=== PATIENT | female | born 1995 ===

== ENCOUNTER 2021-07-05 05:30 | Inpatient (IN) | payer BC ==
[2021-07-05] MEDS: Lactated Ringer's 1,000 ML IV SCH ×3 (07:00→19:09)
[2021-07-05] MEDS ORDERED: Lidocaine 1% (PF) 30 ML VIAL SC PRN (07:02)
[2021-07-05] MEDS ORDERED: Carboprost 250 MCG/ML AMP IM PRN (07:02)
[2021-07-05] MEDS ORDERED: Promethazine HCl 25 MG/ML VIAL IM PRN ×2 (07:02→19:02)
[2021-07-05] MEDS ORDERED: hydrALAZINE 20 MG/ML VIAL SLOW IVP PRN (07:02)
[2021-07-05] MEDS ORDERED: Fentanyl 100 MCG/2 ML VIAL SLOW IVP PRN (07:02)
[2021-07-05] MEDS ORDERED: Ibuprofen 800 MG TAB PO PRN (07:02)
[2021-07-05] MEDS ORDERED: Methylergonovine 0.2 MG/ML VIAL IM PRN (07:02)
[2021-07-05] MEDS ORDERED: Acetaminophen 500 MG TAB PO PRN (07:02)
[2021-07-05] MEDS ORDERED: Ondansetron PF 4 MG/2 ML Vial IVP PRN ×2 (07:02→19:02)
[2021-07-05] MEDS ORDERED: Misoprostol 200 MCG TAB PR PRN (07:02)
[2021-07-05 07:07] VITALS: BMI 35.2
[2021-07-05] MEDS ORDERED: NS w/ Oxytocin 30 units 500 ML IV SCH ×2 (07:15)
[2021-07-05 07:22] LABS: Hemoglobin 10.5 g/dL (12.0-15.5); Mean Corpuscular HGB CONC 32.7 g/dL (32.0-36.0); Mean Corpuscular Hemoglobin 26.4 pg (27.0-33.0); Mean Corpuscular Volume 80.9 fl (81.6-98.3); Mean Platelet Volume 10.2 fl (7.4-10.4); Platelet Count 210 10x3/uL (150-450); RBC Distribution Width 13.9 % (11.5-14.5); Red Blood Cell (RBC) Count 3.97 10x6/uL (3.90-5.03); White Blood Cell (WBC) Count 7.2 10x3/uL (3.5-10.5)
[2021-07-05] MEDS: Misoprostol 100 MCG TAB VAG SCH ×2 (07:49→10:44)
[2021-07-05] MEDS ORDERED: Lidocaine 2% PF 5 ML VIAL ONE (08:00)
[2021-07-05] MEDS ORDERED: Bupivacaine 0.25% HCL 30 ML VIAL ONE (08:00)
[2021-07-05] MEDS ORDERED: Naloxone HCl 0.4 mg/ml Vial IVP PRN ×2 (19:02)
[2021-07-05] MEDS ORDERED: Acetaminophen 325 MG TAB PO PRN (19:02)
[2021-07-05] MEDS ORDERED: ePHEDrine Sulfate 50 MG/10 ML VIAL SLOW IVP PRN (19:02)
[2021-07-05] MEDS ORDERED: diphenhydrAMINE 50 MG/ML VIAL IVP PRN (19:02)
[2021-07-05] MEDS ORDERED: Hydrocerin (Eucerin) Cream 120 gm Jar TOP PRN (19:02)
[2021-07-05] MEDS ORDERED: Lactated Ringer's 500 ML IV PRN (19:02)
[2021-07-05] MEDS ORDERED: Fentanyl 2 mcg/Bup 0.1% Cadd 100 ML ONE (19:07)
[2021-07-05] MEDS ORDERED: Communication Order-Pharmacy FS SCH (19:15)
[2021-07-05] MEDS ORDERED: Fentanyl 2 mcg/Bupivacaine 0.1% Cassette 100 ML EPIDURAL SCH (19:15)
[2021-07-06] MEDS ORDERED: hydrALAZINE 20 MG/ML VIAL SLOW IVP PRN (02:41)
[2021-07-06] MEDS ORDERED: Preparation H Ointment 28 GM TUBE PR PRN (02:41)
[2021-07-06] MEDS ORDERED: Misoprostol 200 MCG TAB VAG PRN (02:41)
[2021-07-06] MEDS ORDERED: Methylergonovine 0.2 MG/ML VIAL IM PRN (02:41)
[2021-07-06] MEDS ORDERED: Milk Of Magnesia 30 ML UDCUP PO PRN (02:41)
[2021-07-06] MEDS ORDERED: Lanolin Ointment 7 GM TUBE TOP PRN (02:41)
[2021-07-06] MEDS ORDERED: Promethazine HCl 25 MG/ML VIAL IM PRN (02:41)
[2021-07-06] MEDS ORDERED: Benzocaine-Menthol 82.5 ML CAN TOP PRN (02:41)
[2021-07-06] MEDS ORDERED: Bisacodyl 10 MG SUPP PR PRN (02:41)
[2021-07-06] MEDS ORDERED: Boostrix 0.5 ML (Tdap) VIAL IM ONE (02:41)
[2021-07-06] MEDS ORDERED: Ondansetron PF 4 MG/2 ML Vial IVP PRN (02:41)
[2021-07-06] MEDS ORDERED: NS w/ Oxytocin 30 units 500 ML IV SCH (03:00)
[2021-07-06] MEDS: Misoprostol 100 MCG TAB VAG SCH (03:07)
[2021-07-06] MEDS ORDERED: Ibuprofen 800 MG TAB PO SCH (06:00)
[2021-07-06] MEDS: Ferrous Sulfate 325 MG TAB PO SCH ×2 (08:26→17:37)
[2021-07-06] MEDS: Prenatal Vitamin 1 TAB PO SCH (09:16)
[2021-07-06] MEDS: Docusate 100 MG CAP PO SCH ×2 (09:16→19:16)
[2021-07-06] MEDS: Ibuprofen 800 MG TAB PO SCH ×2 (11:16→19:15)
[2021-07-06 20:41] LABS: Syphilis Antibody Nonreactive (Nonreactive); Syphilis Antibody Index 0.06 S/CO (<1.00 Non-Reactive)
[2021-07-06 20:53] LABS: Hep B Surf Ag Non-Reactive S/CO (NonReactive)
[2021-07-06 20:59] LABS: HBSAg Index 0.15 S/CO (0-0.99)
[2021-07-07] MEDS: Ibuprofen 800 MG TAB PO SCH ×3 (02:17→18:16)
[2021-07-07] MEDS: Ferrous Sulfate 325 MG TAB PO SCH ×2 (08:23→09:52)
[2021-07-07 09:30] VITALS: BP 103/52; TEMP 99.1
[2021-07-07] MEDS: Docusate 100 MG CAP PO SCH (09:52)
[2021-07-07] MEDS: Prenatal Vitamin 1 TAB PO SCH (09:52)
== END 2021-07-07 20:41 | disposition home or self-care (01) | DRG 807 ==
LOC: CSHLD 05:38 → CSHPP 07-06 02:40
PROVIDERS: ADMIT Family Medicine; ATTEND Family Medicine
PROC: 0KQM0ZZ Repair Perineum Muscle, Open Approach (ICD-10-PCS; principal; 2021-07-05)
PROC: 10D07Z8 Extraction of Products of Conception, Other, Via Natural or Artificial Opening (ICD-10-PCS; 2021-07-05)
PROC: 3E0P7VZ Introduction of Hormone into Female Reproductive, Via Natural or Artificial Opening (ICD-10-PCS; 2021-07-05)
DX: O70.1 Second degree perineal laceration during delivery (principal); Z37.0 Single live birth; Z3A.39 39 weeks gestation of pregnancy; Z79.899 Other long term (current) drug therapy
CPT/HCPCS: 85027; 86780; 86850; 86900; 86901; 87340; J2001; J2590; J3010; J7120; S0020; U0003; U0005